=== PATIENT | female | born 1995 | race Caucasian/White ===

== ENCOUNTER 2017-07-25 15:16 | Inpatient (IN) | payer BC ==
[~2017-07-25] VITALS: Ht 160 cm; Wt 91.0 kg
--- NOTE | 2017-07-26 06:09 | PR ---
[facility] [address] [place], [place] [address] Signed PP Progress Notes Datetime Report Generated by CPN: 07/26/2017 06:09 SUBJECTIVE: [id number] Pain: Within normal limits Nausea/Vomiting: Denies Flatus: Yes Vital Signs: [id number] Vital Signs: Reviewed; Within Normal Limits EXAM: [id number] Cardiovascular: Normal Respiratory: Normal Abdomen/Uterus: Normal Lochia: Normal Vulva/Perineum: Normal Breasts: Normal CVA Tenderness: Normal Extremities: Normal Incision: Not Applicable Progress: Normal IMPRESSION/PLAN/PROCEDURES: [id number] Impression: Normal progression Plan: Continue present management Procedures: None Progress Notes: patient doing well. going well. RH and hgb pending Signing Physician: Ashlyn Hammonds MD CC: *Electronically Signed* 07/26/17 0609 ASHLYN HAMMONDS MD PATIENT NAME: YENY GUILLEN PROGRESS NOTE DATE OF : 89 PHYSICIAN: ASHLYN HAMMONDS MD RPT #: [id number] REPORT IS CONFIDENTIAL AND NOT TO BE RELEASED WITHOUT AUTHORIZATION
== END 2017-07-27 13:00 | disposition home or self-care (01) | DRG 775 ==
LOC: FBCO → FBC 15:44 → FBCO 08-01 13:03
PROVIDERS: ADMIT Obstetrics & Gynecology
PROC: 10907ZC Drainage of Amniotic Fluid, Therapeutic from Products of Conception, Via Natural or Artificial Opening (ICD-10-PCS; principal; 2017-07-25)
PROC: 10E0XZZ Delivery of Products of Conception, External Approach (ICD-10-PCS; 2017-07-25)
PROC: 0KQM0ZZ Repair Perineum Muscle, Open Approach (ICD-10-PCS; 2017-07-25)
DX: O99.824 Streptococcus B carrier state complicating childbirth (principal); Z3A.38 38 weeks gestation of pregnancy; Z37.0 Single live birth; O70.1 Second degree perineal laceration during delivery; O69.81X0 Labor and delivery complicated by cord around neck, without compression, not applicable or unspecified
CPT/HCPCS: 36415; 82565; 83030; 84450; 84520; 84550; 85025; 85027; 86850; 86870; 86900; 86901; J2540; J2590; J2790; J7120

== ENCOUNTER 2023-01-11 12:43 | Emergency (ER) | payer OTHER ==
[~2023-01-11] VITALS: Ht 160 cm; Wt 90.7 kg
== END 2023-01-11 15:05 | disposition home or self-care (01) ==
LOC: ED 12:43
DX: G44.209 Tension-type headache, unspecified, not intractable (principal); R00.0 Tachycardia, unspecified; F43.21 Adjustment disorder with depressed mood
CPT/HCPCS: 36415; 80053; 84443; 85025; 85060; 99284; J7030

== ENCOUNTER 2023-07-17 09:38 | Emergency (ER) | payer OTHER ==
[~2023-07-17] VITALS: Ht 160 cm; Wt 110.2 kg
--- OUTSIDE RECORDS SUMMARY | ~2023-07-17 | XMS | Continuity of Care Document ---
Demographics + + + | Address | [address] | | | [place] [address] | + + + | Preferred Language | Unknown | + + + | Marital Status | Never | + + + | Confucianism Affiliation | Unknown | + + + | Race | White | + + + | Ethnic Group | Not or | + + + Author + + + | Author | [facility] | + + + | Organization | [facility] | + + + | Address | [address] | | | [place] [address] | + + + | Phone | | + + + Care Team Providers + + + + | Care Precision Printing Worker Name | Role | Phone | + + + + Unavailable | Unavailable | + + + + Unavailable | Unavailable | + + + + Allergies No information. Encounters No information. Functional Status No information. Immunizations No information. Medications No information. Problems + + + + | date | description | facility | + + + + | 2023-01-11 00:00 | Grief | [facility] | + + + + | 2023-01-11 00:00 | Tension headache | [facility] | + + + + | 2023-01-11 00:00 | Tachycardia | [facility] | + + + + Procedures No information. Results/Labs +--------+--------+ +---------+--------+---------+ | test | date | facility | value | unit | notes | +--------+--------+ +---------+--------+---------+ + + | Result panel 1 | + + + + + +-------+ + + | | 2023-01-11 | [facility] | 6.4 | (missing) | (missing) | | (unavailable | [facility]50[facility]08 [facility] | | | + + + +-------+ + + + + | Result panel 2 | + + + + + +-------+ + + | | 2023-01-11 | [facility] | 183 | (missing) | (missing) | | (unavailable | [facility]50:08 [facility] | | | | + + + +-------+ + + + + | Result panel 3 | + + + + + +--------+ + + | | 2023-01-11 | [facility] | 42.1 | (missing) | (missing) | | (unavailable | [facility]08 [facility] | | | | + + + +--------+ + + + + | Result panel 4 | + + + + + +--------+ + + | | 2023-01-11 | [facility] | 50.2 | (missing) | (missing) | | (unavailable | [facility]:08 [facility] | | | | + + + +--------+ + + + + | Result panel 5 | + + + + + +-------+ + + | | 2023-01-11 | [facility] | 7.0 | (missing) | (missing) | | (unavailable | [facility]50:08 [facility] | | | | + + + +-------+ + + + + | Result panel 6 | + + + + + +-------+ + + | | 2023-01-11 | [facility] | 0.2 | (missing) | (missing) | | (unavailable | [facility]:08 [facility] | | | | + + + +-------+ + + + + | Result panel 7 | + + + + + +-------+ + + | | 2023-01-11 | [facility] | 0.5 | (missing) | (missing) | | (unavailable | [facility]08 [facility] | | | | + + + +-------+ + + + + | Result panel 8 | + + + + + +-------+---------+ + | | 2023-01-11 | [facility] | 105 | mg/dL | (missing) | | (unavailable | [facility]50:08 [facility] | | | | + + + +-------+---------+ + + + | Result panel 9 | + + + + + +------+---------+ + | | 2023-01-11 | [facility] | 14 | mg/dL | (missing) | | (unavailable | [facility]50:08 [facility] | | | | + + + +------+---------+ + + + | Result panel 10 | + + + + + +--------+---------+ + | | 2023-01-11 | [facility] | 0.82 | mg/dL | (missing) | | (unavailable | [facility]50:08 [facility] | | | + + + +--------+---------+ + + + | Result panel 11 | + + + + + +-------+ + + | | 2023-01-11 | [facility] | 101 | (missing) | (missing) | | (unavailable | [facility]50:08 [facility] | | | + + + +-------+ + + + + | Result panel 12 | + + + + + + + + + | | 2023-01-11 | [facility] | SEE COMMENT | (missing) | (missing) | | (unavailable | [facility]:50:08 [facility] | | | + + + + + + + + + | Result panel 13 | + + + + + +---------+ + + | | 2023-01-11 | [facility] | 17.07 | (missing) | (missing) | | (unavailable | [facility]50:08 [facility] | | | | + + + +---------+ + + + + | Result panel 14 | + + + + + +-------+ + + | | 2023-01-11 | [facility] | 137 | (missing) | (missing) | | (unavailable | [facility]50:08 [facility] | | | | + + + +-------+ + + + + | Result panel 15 | + + + + + +-------+ + + | | 2023-01-11 | [facility] | 3.0 | (missing) | (missing) | | (unavailable | [facility]50:08 [facility] | | | + + + +-------+ + + + + | Result panel 16 | + + + + + +-------+ + + | | 2023-01-11 | [facility] | 100 | (missing) | (missing) | | (unavailable | [facility]50:08 [facility] | | | + + + +-------+ + + + + | Result panel 17 | + + + + + +------+ + + | | 2023-01-11 | [facility] | 24 | (missing) | (missing) | | (unavailable | [facility]50:08 [facility] | | | + + + +------+ + + + + | Result panel 18 | + + + + + +--------+ + + | | 2023-01-11 | [facility] | 16.0 | (missing) | (missing) | | (unavailable | [facility]50:08 [facility] | | | + + + +--------+ + + + + | Result panel 19 | + + + + + +-------+---------+ + | | 2023-01-11 | [facility] | 9.1 | mg/dL | (missing) | | (unavailable | [facility]:50:08 [facility] | | | + + + +-------+---------+ + + + | Result panel 20 | + + + + + +-------+ + + | | 2023-01-11 | [facility] | 7.7 | (missing) | (missing) | | (unavailable | [facility]50:08 [facility] | | | + + + +-------+ + + + + | Result panel 21 | + + + + + +-------+ + + | | 2023-01-11 | [facility] | 3.7 | (missing) | (missing) | | (unavailable | [facility]50:08 [facility] | | | | + + + +-------+ + + + + | Result panel 22 | + + + + + +-------+ + + | | 2023-01-11 | [facility] | 4.0 | (missing) | (missing) | | (unavailable | [facility]50:08 [facility] | | | + + + +-------+ + + + + | Result panel 23 | + + + + + +--------+ + + | | 2023-01-11 | [facility] | 5.12 | (missing) | (missing) | | (unavailable | [facility]50:08 [facility] | | | | + + + +--------+ + + + + | Result panel 24 | + + + + + +--------+ + + | | 2023-01-11 | [facility] | 0.93 | (missing) | (missing) | | (unavailable | [facility]50:08 [facility] | | | + + + +--------+ + + + + | Result panel 25 | + + + + + +-------+ + + | | 2023-01-11 | [facility] | 0.7 | (missing) | (missing) | | (unavailable | [facility]50:08 [facility] | | | + + + +-------+ + + + + | Result panel 26 | + + + + + +------+ + + | | 2023-01-11 | [facility] | 39 | (missing) | (missing) | | (unavailable | [facility]:50:08 [facility] | | | + + + +------+ + + + + | Result panel 27 | + + + + + +------+ + + | | 2023-01-11 | [facility] | 51 | (missing) | (missing) | | (unavailable | 13:50:08 [facility] | | | | + + + +------+ + + + + | Result panel 28 | + + + + + +-------+ + + | | 2023-01-11 | [facility] | 106 | (missing) | (missing) | | (unavailable | [facility]:50:08 [facility] | | | | + + + +-------+ + + + + | Result panel 29 | + + + + + +---------+ + + | | 2023-01-11 | [facility] | 0.934 | (missing) | (missing) | | (unavailable | [facility]:50:08 [facility] | | | | + + + +---------+ + + + + | Result panel 30 | + + + + + +--------+ + + | | 2023-01-11 | [facility] | 13.1 | (missing) | (missing) | | (unavailable | [facility]:50:08 [facility] | | | | + + + +--------+ + + + + | Result panel 31 | + + + + + +--------+ + + | | 2023-01-11 | [facility] | 39.4 | (missing) | (missing) | | (unavailable | [facility]50:08 [facility] | | | + + + +--------+ + + + + | Result panel 32 | + + + + + +--------+ + + | | 2023-01-11 | [facility] | 76.9 | (missing) | (missing) | | (unavailable | [facility]50:08 [facility] | | | + + + +--------+ + + + + | Result panel 33 | + + + + + +--------+ + + | | 2023-01-11 | [facility] | 25.5 | (missing) | (missing) | | (unavailable | [facility]50:08 [facility] | | | + + + +--------+ + + + + | Result panel 34 | + + + + + +--------+ + + | | 2023-01-11 | [facility] | 33.2 | (missing) | (missing) | | (unavailable | [facility]50:08 [facility] | | | + + + +--------+ + + + + | Result panel 35 | + + + + + +--------+ + + | | 2023-01-11 | [facility] | 15.2 | (missing) | (missing) | | (unavailable | [facility]50:08 [facility] | | | | + + + +--------+ + + Social History No information. Vital Signs + + + +---------+ | date | measurement | value | units | + + + +---------+ | 2023-01-11 00:00 | BMI | 35.4 | kg/m2 | + + + +---------+ | 2023-01-11 00:00 | BP_diastolic | 106 | mmHg | + + + +---------+ | 2023-01-11 00:00 | BP_systolic | 154 | mmHg | + + + +---------+ | 2023-01-11 00:00 | heart_rate | 117 | /min | + + + +---------+ | 2023-01-11 00:00 | height_metric | 160.02 | cm | + + + +---------+ | 2023-01-11 00:00 | height_standard | 63 | in | + + + +---------+ | 2023-01-11 00:00 | o2_saturation | 97 | % | + + + +---------+ | 2023-01-11 00:00 | respiration_rate | 16 | /min | + + + +---------+ | 2023-01-11 00:00 | temperature_metric | 37.06 | C | | | | | | + + + +---------+ | 2023-01-11 00:00 | | 98.7 | F | | | temperature_standar | | | | | d | | | + + + +---------+ | 2023-01-11 00:00 | weight_metric | 90.72 | kg | + + + +---------+ | 2023-01-11 00:00 | weight_standard | 200 | lb | + + + +---------+"
--- OUTSIDE RECORDS SUMMARY | ~2023-07-17 | XMS | Continuity of Care Document ---
Demographics + + + | Address | [address] | | | [place] [address] | + + + | Preferred Language | Unknown | + + + | Marital Status | Never | + + + | Judaism Affiliation | Unknown | + + + | Race | White | + + + | Ethnic Group | Not or | + + + Author + + + | Author | [facility] | + + + | Organization | [facility] | + + + | Address | [address] | | | [place] [address] | + + + | Phone | | + + + Care Team Providers + + + + | Care Piercing Mill Operator Name | Role | Phone | + [...] + | 2023-01-11 00:00 | Grief | [facility] | + + + + | 2023-01-11 00:00 | Tension headache | [facility] | + + + + | 2023-01-11 00:00 | Tachycardia | [facility] | + + + + Procedures No [...]
[2023-07-17 10:16] LABS: BILIRUBIN, URINE POSITIVE (negative); BLOOD/HGB, URINE LARGE (Negative); KETONE, URINE >=80 (Negative); LEUK ESTERASE, URINE NEGATIVE (negative); NITRITE, URINE NEGATIVE (negative)
[2023-07-17 10:23] LABS: BACTERIA, URINE RARE /hpf (negative); CASTS, URINE NONE SEEN \\lpf; COLLECTION TYPE, URINE CLEAN CATCH; CRYSTALS, URINE NONE SEEN (0-1+); EPITHELIAL CELLS, URINE SQUAMOUS 2+ /lpf (0-1+); RED BLOOD CELLS, URINE 41-50 /hpf (0-5)
[2023-07-17 10:24] LABS: REFLEX CULTURE, URINE No (No)
[2023-07-17 10:35] LABS: BASOPHILS 0.1 % (0-2); EOSINOPHILS 0.3 % (0-6); HEMATOCRIT 38.7 % (35.0-50.0); HEMOGLOBIN 12.8 g/dL (12.0-18.0); LYMPHOCYTES 15.4 % (24-44); MCH 25.8 (27-36); MCHC 33.1 g/dl (30-36); MCV 77.8 fl (81-99); MONOCYTES 5.2 % (0-12); PLATELET COUNT 138 K/uL (140-440); RBC 4.98 M/ul (4.3-5.7); RDW 14.6 (10.5-15.0)
[2023-07-17 10:38] LABS: ANION GAP 15.8 (7-21); BUN/CREATININE RATIO 16.47 (6.0-28.6); CREATININE, SERUM 0.85 mg/dL (0.55-1.02); POTASSIUM 2.8 mmol/L (3.5-5.1)
[2023-07-17] MEDS ORDERED: HYDROCODON-ACE1 EA10 PO (12:24)
[2023-07-17] MEDS ORDERED: ONDANSETRON ODT4 MG PO (12:25)
[2023-07-17 12:31] VITALS: BP 113/72
== END 2023-07-17 12:30 | disposition home or self-care (01) ==
LOC: ED 09:38
PROVIDERS: Emergency Medicine
DX: N20.1 Calculus of ureter (principal)
CPT/HCPCS: 36415; 74176; 80048; 81001; 84703; 85025; 85060; 99284-25; J7030

== ENCOUNTER 2025-05-28 03:31 | Inpatient (IN) | payer OTHER ==
[~2025-05-28] VITALS: Ht 157.5 cm; Wt 78.9 kg
[~2025-05-28 03:31] MED LIST: HYDROCODON-ACE1 EA10 PO; ONDANSETRON ODT4 MG PO
[2025-05-28 04:28] LABS: MCH 27.0 PG (25.6-32.2); MCHC 34.3 g/dL (32.2-35.5); MCV 78.7 fL (79.4-94.8); RBC 4.37 M/uL (3.93-5.22)
[2025-05-28] MEDS ORDERED: CALCIUM CARBONATE 500 MG CHEW PO PRN ×2 (04:30→05:00)
[2025-05-28] MEDS ORDERED: LIDOCAINE HCL 1% 30 ML SDV INJ PRN (04:30)
[2025-05-28] MEDS ORDERED: TERBUTALINE SULFATE 1 MG/ML AMP SUB-Q PRN (04:30)
[2025-05-28] MEDS ORDERED: MAGNESIUM HYDROXIDE/AL HYDROX 30 ML CUP PO PRN ×2 (04:30→05:00)
[2025-05-28] MEDS ORDERED: OXYTOCIN/0.9 % SODIUM CHLORIDE 30 UNITS/500 ML BAG IV SCH (04:30)
[2025-05-28] MEDS ORDERED: WITCH HAZEL/GLYCERIN 1 EA PAD TOP PRN (05:00)
[2025-05-28] MEDS ORDERED: IBUPROFEN 600 MG TAB PO PRN (05:00)
[2025-05-28] MEDS ORDERED: ACETAMINOPHEN 325 MG TAB PO PRN (05:00)
[2025-05-28] MEDS ORDERED: LIDOCAINE 2% VISCOUS 6 ML SYR TOP ONE ×2 (05:00)
[2025-05-28] MEDS ORDERED: BENZOCAINE 60 ML AEROSOL TOP PRN (05:00)
[2025-05-28] MEDS ORDERED: OXYTOCIN/0.9 % SODIUM CHLORIDE 500 ML IV SCH (05:00)
[2025-05-28] MEDS ORDERED: MAGNESIUM HYDROXIDE 30 ML UDC PO PRN (05:00)
[2025-05-28] MEDS ORDERED: HYDROCORTISONE ACETATE 25 MG SUPP PR PRN (05:00)
[2025-05-28 05:39] LABS: ABO O; ANTIBODY SCREEN POSITIVE; RH NEGATIVE
[2025-05-28 06:07] LABS: ANTIBODY IDENTIFICATION ANTI-D
[2025-05-28 07:10] VITALS: BP 119/71
[2025-05-28 08:11] LABS: AMPHETAMINES, URINE NEGATIVE (NEGATIVE); BARBITURATES, URINE NEGATIVE (NEGATIVE); BENZODIAZEPINE, URINE NEGATIVE (NEGATIVE); CANNABINOID, URINE NEGATIVE (NEGATIVE); COCAINE, URINE NEGATIVE (NEGATIVE); ECSTASY, URINE NEGATIVE (NEGATIVE); FENTANYL, URINE NEGATIVE (NEGATIVE); METHADONE, URINE NEGATIVE (NEGATIVE); OPIATES, URINE NEGATIVE (NEGATIVE); OXYCODONE, URINE NEGATIVE (NEGATIVE); PHENCYCLIDINE, URINE NEGATIVE (NEGATIVE)
[2025-05-28] MEDS ORDERED: SENNOSIDES/DOCUSATE 1 EA TAB PO SCH (09:00)
[2025-05-29 11:23] LABS: ABO O; ANTIBODY SCREEN POSITIVE; FETAL HEMOGLOBIN SCREEN NEGATIVE; RH NEGATIVE; RHIG STATUS CANDIDATE
[2025-05-29 11:24] LABS: ANTIBODY IDENTIFICATION ANTI-D; RHIG DOSE 1
== END 2025-05-29 12:00 | disposition home or self-care (01) | DRG 807 ==
LOC: FBCO 03:31 → FBC 04:03
PROVIDERS: Advanced Practice Midwife; ADMIT Obstetrics & Gynecology; ATTEND Obstetrics & Gynecology
PROC: 10E0XZZ Delivery of Products of Conception, External Approach (ICD-10-PCS; principal; 2025-05-28)
PROC: 0KQM0ZZ Repair Perineum Muscle, Open Approach (ICD-10-PCS; principal; 2025-05-28)
DX: O70.1 Second degree perineal laceration during delivery (principal); Z37.0 Single live birth; O99.214 Obesity complicating childbirth; Z86.19 Personal history of other infectious and parasitic diseases; Z3A.38 38 weeks gestation of pregnancy
CPT/HCPCS: 36415; 80307; 83030; 85027; 86850; 86870; 86900; 86901; J2790

== ENCOUNTER 2025-06-01 12:45 | Emergency (ER) | payer OTHER ==
[~2025-06-01] VITALS: Ht 152.4 cm; Wt 73.0 kg
--- OUTSIDE RECORDS SUMMARY | ~2025-06-01 | XMS | Continuity of Care Document ---
Demographics + + + | Address | [address] | | | [place] [address] | + + + | Preferred Language | Unknown | + + + | Marital Status | Never | + + + | Scientologist Affiliation | Unknown | + + + | Race | White | + + + | Ethnic Group | Not or | + + + Author + + + | Author | [facility] | + + + | Organization | [facility] | + + + | Address | [address] | | | [place] [address] | + + + | Phone | | + + + Care Team Providers + + + + | Care Band Tumbler Name | Role | Phone | + + + + Unavailable | Unavailable | + + + + Allergies No information. Encounters No information. Functional Status No information. Immunizations No information. Medications No information. Problems No information. Procedures No information. Results/Labs +--------+--------+ +---------+--------+---------+ | test | date | facility | value | unit | notes | +--------+--------+ +---------+--------+---------+ + + | Result panel 1 | + + + + + + + + + | | 2025-05-28 | | NEGATIVE | (missing) | (missing) | | Amphetamines | 03:40:07 | [facility] | | | | | Ur Ql [facility] Scn[facility]500 [facility] | | | | + + + + + + + + + | Result panel 2 | + + + + + + + + + | | 2025-05-28 | | NEGATIVE | (missing) | (missing) | | Barbiturates | 03:40:07 | [facility] | | | | | Ur Ql | [facility] | Scn>300 | [facility] ng/mL [facility] | | | | + + + + + + + + + | Result panel 3 | + + + + + + + + + | Benzodiaz | 2025-05-28 | | NEGATIVE | (missing) | (missing) | | Ur Ql | 03:40:07 | [facility] | | | | | Scn>300 | [facility] ng/[facility] | | | | + + + + + + + + + | Result panel 4 | + + + + + + + + + | Cocaine Ur | 2025-05-28 | | NEGATIVE | (missing) | (missing) | | Ql Scn | 03:40:07 | [facility] | | | | + + + + + + + + + | Result panel 5 | + + + + + + + + + | | 2025-05-28 | | NEGATIVE | (missing) | (missing) | | Buprenorphin | 03:40:07 | [facility] | | | | | e Ur Ql Scn | [facility] | | | | + + + + + + + + + | Result panel 6 | + + + + + + + + + | oxyCODONE | 2025-05-28 | | NEGATIVE | (missing) | (missing) | | Ur Ql Scn | 03:40:07 | [facility] | | | | + + + + + + + + + | Result panel 7 | + + + + + + + + + | MDMA Ur Ql | 2025-05-28 | | NEGATIVE | (missing) | (missing) | | Scn | 03:40:07 | [facility] | | | | + + + + + + + + + | Result panel 8 | + + + + + + + + + | Methadone | 2025-05-28 | | NEGATIVE | (missing) | (missing) | | Ur Ql | 03:40:07 | [facility] | | | | | Scn>300 | [facility] ng/mL [facility] | | | | + + + + + + + + + | Result panel 9 | + + + + + + + + + | Opiates Ur | 2025-05-28 | | NEGATIVE | (missing) | (missing) | | Ql Scn | 03:40:07 | [facility] | | | | + + + + + + + + + | Result panel 10 | + + + + + + + + + | PCP Ur Ql | 2025-05-28 | | NEGATIVE | (missing) | (missing) | | Scn>25 ng/mL | 03:40:07 | [facility] | | | | + + + + + + + + + | Result panel 11 | + + + + + + + + + | THC Ur Ql | 2025-05-28 | | NEGATIVE | (missing) | (missing) | | Scn>50 ng/mL | 03:40:07 | [facility] | | | | + + + + + + + + + | Result panel 12 | + + + + + + + + + | fentaNYL Ur | 2025-05-28 | | NEGATIVE | (missing) | (missing) | | Ql Scn | 03:40:07 | [facility] | | | | + + + + + + + + + | Result panel 13 | + + + + + +--------+ + + | RBC # Bld | 2025-05-28 | | 4.37 | (missing) | (missing) | | Auto | 04:10:07 | [facility] | | | | + + + +--------+ + + + + | Result panel 14 | + + + + + +--------+ + + | Hgb | 2025-05-28 | | 11.8 | (missing) | (missing) | | Bld-mCnc | 04:10:07 | [facility] | | | | + + + +--------+ + + + + | Result panel 15 | + + + + + +--------+ + + | Hct VFr.DF | 2025-05-28 | | 34.4 | (missing) | (missing) | | Bld Auto | 04:10:07 | [facility] | | | | + + + +--------+ + + + + | Result panel 16 | + + + + + +--------+ + + | RBC Auto | 2025-05-28 | | 78.7 | (missing) | (missing) | | | 04:10:07 | [facility] | | | | + + + +--------+ + + + + | Result panel 17 | + + + + + +--------+ + + | MCH RBC Qn | 2025-05-28 | | 27.0 | (missing) | (missing) | | Auto | 04:10:07 | [facility] | | | | + + + +--------+ + + + + | Result panel 18 | + + + + + +--------+ + + | MCHC RBC | 2025-05-28 | | 34.3 | (missing) | (missing) | | Auto-EntMCnc | 04:10:07 | [facility] | | | | + + + +--------+ + + + + | Result panel 19 | + + + + + +-------+ + + | Platelet # | 2025-05-28 | | 168 | (missing) | (missing) | | Bld Auto | 04:10:07 | [facility] | | | | + + + +-------+ + + + + | Result panel 20 | + + + + + + + + + | Transf Band | 2025-05-28 | | BLOOD IN | (missing) | (missing) | | Num Patient | 04:10:07 | [facility] LAB [facility] | | | | + + + + + + + + + | Result panel 21 | + + + + + +--------+ + + | WBC # Bld | 2025-05-28 | | 7.47 | (missing) | (missing) | | Auto | 04:10:07 | [facility] | | | | + + + +--------+ + + + + | Result panel 22 | + + + + + +-----+ + + | ABO Group | 2025-05-29 | | O | (missing) | (missing) | | Bld | 10:30:07 | [facility] | | | | + + + +-----+ + + + + | Result panel 23 | + + + + + + + + + | Rh Bld | 2025-05-29 | | NEGATIVE | (missing) | (missing) | | | 10:30:07 | [facility] | | | | + + + + + + + + + | Result panel 24 | + + + + + + + + + | IAT Poly-Sp | 2025-05-29 | | POSITIVE | (missing) | (missing) | | Reag SerPl | 10:30:07 | [facility] | | | | | Ql [facility] | | | | + + + + + + + + + | Result panel 25 | + + + + + + + + + | Bld gp Ab | 2025-05-29 | | ANTI-D | (missing) | (missing) | | Autol Scn | 10:30: | [facility] | | | | | SerPl-Imp [facility] | | | | + + + + + + + + + | Result panel 26 | + + + + + + + + + | Rh Imm Gl | 2025-05-29 | | [id number] | (missing) | (missing) | | gvn by | 10:: | [facility] | | | | | Provider [facility] | | | | + + + + + + + + + | Result panel 27 | + + + + + + + + + | Rh Ig Scn | 2025-05-29 | | NEGATIVE | (missing) | (missing) | | Bld-Imp | 10:30:07 | [facility] | | | | + + + + + + + + + | Result panel 28 | + + + + + + + + + | RhoGam | 2025-05-29 | | CANDIDATE | (missing) | (missing) | | candidate | 10:30:07 | [facility] | | | | + + + + + + + + + | Result panel 29 | + + + + + +-----+ + + | Rh Ig Vials | 2025-05-29 | | 1 | (missing) | (missing) | | Recom | 10:30:07 | [facility] | | | | | Patient [facility] | | | | + + + +-----+ + + Social History +--------+ + + | date | description | facility | +--------+ + + Vital Signs + + + +---------+ | date | measurement | value | units | + + + +---------+ | 2025-05-28 00:00 | BMI | 31.8 | kg/m2 | + + + +---------+ | 2025-05-28 00:00 | BP_diastolic | 71 | mmHg | + + + +---------+ | 2025-05-28 00:00 | BP_systolic | 119 | mmHg | + + + +---------+ | 2025-05-28 00:00 | height_metric | 157.5 | cm | + + + +---------+ | 2025-05-28 00:00 | height_standard | 62.01 | in | + + + +---------+ | 2025-05-28 00:00 | weight_metric | 78.9 | kg | + + + +---------+ | 2025-05-28 00:00 | weight_standard | 173.94 | lb | + + + +---------+"
[2025-06-01] MEDS ORDERED: SODIUM CHLORIDE 0.9% 1,000 ML IV PRN (14:15)
[2025-06-01 14:32] LABS: BASOPHILS 0.3 % (0.1-1.2); EOSINOPHILS 0.4 % (0.7-5.8); LYMPHOCYTES 22.0 % (19.3-51.7); MCH 26.3 PG (25.6-32.2); MCHC 32.6 g/dL (32.2-35.5); MCV 80.7 fL (79.4-94.8); MONOCYTES 5.5 % (4.7-12.5); NEUTROPHILS 71.4 % (34.0-71.1); RBC 4.60 M/uL (3.93-5.22)
[2025-06-01 14:52] LABS: ALT (SGPT) 20.0 U/L (14-59); AST (SGOT) 14.0 U/L (15-37); GLOMERULAR FILTRATION RATE,EST 120.0 mL/min (>60); PROTEIN, TOTAL 7.5 g/dL (6.4-8.2); UREA NITROGEN 15.0 mg/dL (7-18)
[2025-06-01] MEDS ORDERED: KETOROLAC TROMETHAMINE 15 MG/ML VIAL IV ONE (15:00)
[2025-06-01 16:23] LABS: BLOOD/HGB, URINE LARGE (Negative); KETONE, URINE SMALL (Negative); LEUK ESTERASE, URINE TRACE (negative); NITRITE, URINE NEGATIVE (negative)
[2025-06-01 16:27] LABS: PROTEIN, RANDOM URINE 33.0 mg/dL (NOT ESTABLISHED)
[2025-06-01 16:29] LABS: BACTERIA, URINE NONE SEEN /hpf (negative); CASTS, URINE NONE SEEN \\lpf; CRYSTALS, URINE NONE SEEN (0-1+); EPITHELIAL CELLS, URINE SQUAMOUS 1+ /lpf (0-1+); REFLEX CULTURE, URINE No (No)
[2025-06-01] MEDS ORDERED: LABETALOL HCL100 MG PO (17:03)
[2025-06-01] MEDS ORDERED: LABETALOL HCL 100 MG TAB PO ONE (17:30)
[2025-06-01 17:36] VITALS: BP 120/77
== END 2025-06-01 17:38 | disposition home or self-care (01) ==
LOC: ED 12:45
PROVIDERS: Emergency Medicine
DX: O10.911 Unspecified pre-existing hypertension complicating pregnancy, first trimester (principal)
CPT/HCPCS: 36415; 80053; 81001; 82570; 84156; 85025; 96374; 99284-25; J1885; J7030

== ENCOUNTER 2025-06-03 01:20 | Emergency (ER) | payer OTHER ==
[~2025-06-03] VITALS: Ht 157.5 cm; Wt 74.6 kg
--- OUTSIDE RECORDS SUMMARY | ~2025-06-03 | XMS | Continuity of Care Document ---
Demographics + + + | Address | [facility] [address] | | | [place] [address] | + + + | Preferred Language | Unknown | + + + | Marital Status | Never | + + + | Restorationism Affiliation | Unknown | + + + | Race | White | + + + | Ethnic Group | Not or | + + + Author + + + | Author | [facility] | + + + | Organization | [facility] | + + + | Address | [address] | | | [place] [address] | + + + | Phone | | + + + Care Team Providers + + + + | Care Ham Curer Name | Role | Phone | + + + + Unavailable | Unavailable | + + + + Unavailable | Unavailable | + + + + Allergies No information. Encounters No information. Functional Status No information. Immunizations No information. Medications + + + + | date | description | facility | + + + + | 2025-06-01 00:00 | LABETALOL HCL | [facility] | | | | [facility] | + + + + Problems + + + + | date | description | facility | + + + + | 2025-06-01 00:00 | Pre-eclampsia | [facility] | | | | [facility] | + + + + | 2025-06-01 00:00 | Hypertension affecting | [facility] | | | , antepartum | [facility] | + + + + Procedures No [...] 13 | + + + + + + [...] 14 | + + + + + + [...] 15 | + + + + + + [...] 16 | + + + + + + [...] 17 | + + + + + + [...] 18 | + + + + + + [...] 19 | + + + + + + [...] 21 | + + + + + + [...] 22 | + + + + + + [...] 27 | + + + + + +--------+ [...] 28 | + + + + + +--------+ [...] 29 | + + + + + +--------+ [...] (missing) | | [facility] | 04:10:07 | [facility] | | | | + + + +--------+ + + + + | Result panel 34 | + + + + + +-------+ [...] 35 | + + + + + +-----+ [...] + + + + | Result panel 36 | + + + + + + [...] + + + + | Result panel 37 | + + + + + + [...] + + + + | Result panel 38 | + + + + + + + + + | Bld gp Ab | 2025-05-29 | | ANTI-D | (missing) | (missing) | | Autol Scn | 10:30:07 | [facility] | | | | | [facility]Imp [facility] | | | | + + + + + + + + + | Result panel 39 | + + + + + + + + + | Rh Imm Gl | 2025-05-29 | | [id number] | (missing) | (missing) | | gvn by | 10:30:07 | [facility] - [facility] | | | | + + + + + + + + + | Result panel 40 | + + + + + + [...] + + + + | Result panel 41 | + + + + + + [...] + + + + | Result panel 42 | + + + + + +-----+ [...] + + + + | Result panel 43 | + + + + + + [...] + + + + | Result panel 44 | + + + + + + [...] + + + + | Result panel 45 | + + + + + +-----+ [...] + + + + | Result panel 46 | + + + + + + + + + | Bld gp Ab | 2025-05-29 | | ANTI-D | (missing) | (missing) | | Autol Scn | 10:30:07 | [facility] | | | | | [facility]Imp [facility] | | | | + + + + + + + + + | Result panel 47 | + + + + + + + + + | Rh Imm Gl | 2025-05-29 | | [id number] | (missing) | (missing) | | gvn by | 10:30:07 | [facility] | | | | | Provider | [facility] - [facility] | | | | [facility] | | | | + + + + + + + + + | Result panel 48 | + + + + + + + + + | Rh Ig Scn | 2025-05-29 | | NEGATIVE | (missing) | (missing) | | Bld-Imp | 10:30:07 | [facility] | | | | | | | - [facility] | | | | [facility] | | | | + + + + + + + + + | Result panel 49 | + + + + + + [...] + + + + | Result panel 50 | + + + + + +-----+ [...] + + + + | Result panel 51 | + + + + + +--------+ + + | RBC # Bld | 2025-06-01 | | 4.60 | (missing) | (missing) | | Auto | 14:29:07 | [facility] | | | | + + + +--------+ + + + + | Result panel 52 | + + + + + +--------+ + + | Hgb | 2025-06-01 | | 12.1 | (missing) | (missing) | | Bld-mCnc | 14:29:07 | [facility] | | | | + + + +--------+ + + + + | Result panel 53 | + + + + + +--------+ + + | Hct VFr.DF | 2025-06-01 | | 37.1 | (missing) | (missing) | | Bld Auto | 14:29:07 | [facility] | | | | + + + +--------+ + + + + | Result panel 54 | + + + + + +--------+ + + | RBC Auto | 2025-06-01 | | 80.7 | (missing) | (missing) | | | 14:29:07 | [facility] | | | | + + + +--------+ + + + + | Result panel 55 | + + + + + +--------+ + + | MCH RBC Qn | 2025-06-01 | | 26.3 | (missing) | (missing) | | Auto | 14:29:07 | [facility] | | | | + + + +--------+ + + + + | Result panel 56 | + + + + + +--------+ + + | MCHC RBC | 2025-06-01 | | 32.6 | (missing) | (missing) | | [facility] | 14:29:07 | [facility] | | | | + + + +--------+ + + + + | Result panel 57 | + + + + + +-------+ + + | Platelet # | 2025-06-01 | | 196 | (missing) | (missing) | | Bld Auto | 14:29:07 | [facility] | | | | + + + +-------+ + + + + | Result panel 58 | + + + + + +--------+ + + | Neutrophils | 2025-06-01 | | 71.4 | (missing) | (missing) | | NFr Bld | 14:29:07 | [facility] | | | | | Auto | [facility] | | | | + + + +--------+ + + + + | Result panel 59 | + + + + + +--------+ + + | Lymphocytes | 2025-06-01 | | 22.0 | (missing) | (missing) | | NFr Bld | 14:29:07 | [facility] | | | | | Auto | [facility] | | | | + + + +--------+ + + + + | Result panel 60 | + + + + + +-------+ + + | Monocytes | 2025-06-01 | | 5.5 | (missing) | (missing) | | NFr Bld Auto | 14:29:07 | [facility] | | | | + + + +-------+ + + + + | Result panel 61 | + + + + + +-------+ + + | Eosinophil | 2025-06-01 | | 0.4 | (missing) | (missing) | | NFr Bld Auto | 14:29:07 | [facility] | | | | + + + +-------+ + + + + | Result panel 62 | + + + + + +-------+ + + | Basophils | 2025-06-01 | | 0.3 | (missing) | (missing) | | NFr Bld Auto | 14:29:07 | [facility] | | | | + + + +-------+ + + + + | Result panel 63 | + + + + + +------+---------+ + | Glucose | 2025-06-01 | | 93 | mg/dL | (missing) | | SerPl-mCnc | 14:29:07 | [facility] | | | | + + + +------+---------+ + + + | Result panel 64 | + + + + + +------+---------+ + | BUN | 2025-06-01 | | 15 | mg/dL | (missing) | | SerPl-mCnc | 14:29:07 | [facility] | | | | + + + +------+---------+ + + + | Result panel 65 | + + + + + +--------+---------+ + | Creat | 2025-06-01 | | 0.70 | mg/dL | (missing) | | SerPl-mCnc | 14:29:07 | [facility] | | | | + + + +--------+---------+ + + + | Result panel 66 | + + + + + +-------+ + + | eGFRcr | 2025-06-01 | | 120 | (missing) | (missing) | | SerPlBld | 14:29:07 | [facility] | | | | | CKD-EPI 2020 | [facility] | | | | + + + +-------+ + + + + | Result panel 67 | + + + + + +---------+ + + | BUN/Creat | 2025-06-01 | | 21.42 | (missing) | (missing) | | SerPl | 14:29:07 | [facility] | | | | + + + +---------+ + + + + | Result panel 68 | + + + + + +-------+ + + | Sodium | 2025-06-01 | | 140 | (missing) | (missing) | | SerPl-sCnc | 14:29:07 | [facility] | | | | + + + +-------+ + + + + | Result panel 69 | + + + + + +-------+ + + | Potassium | 2025-06-01 | | 3.2 | (missing) | (missing) | | SerPl-sCnc | 14:29:07 | [facility] | | | | + + + +-------+ + + + + | Result panel 70 | + + + + + +-------+ + + | Chloride | 2025-06-01 | | 105 | (missing) | (missing) | | SerPl-sCnc | 14:29:07 | [facility] | | | | + + + +-------+ + + + + | Result panel 71 | + + + + + +------+ + + | CO2 | 2025-06-01 | | 25 | (missing) | (missing) | | [facility] | 14:29:07 | [facility] | | | | | [facility] | | | | + + + +------+ + + + + | Result panel 72 | + + + + + +--------+ + + | Anion Gap | 2025-06-01 | | 13.2 | (missing) | (missing) | | SerPl | 14:29:07 | [facility] | | | | | Calculated.4 | [facility] | | | | + + + +--------+ + + + + | Result panel 73 | + + + + + +-------+---------+ + | Calcium | 2025-06-01 | | 9.1 | mg/dL | (missing) | | SerPl-mCnc | 14:29:07 | [facility] | | | [facility] | | | | + + + +-------+---------+ + + + | Result panel 74 | + + + + + +-------+ + + | Prot | 2025-06-01 | | 7.5 | (missing) | (missing) | | [facility] | 14:29:07 | [facility] | | | | + + + +-------+ + + + + | Result panel 75 | + + + + + +-------+ + + | Albumin | 2025-06-01 | | 3.5 | (missing) | (missing) | | [facility] | 14:29:07 | [facility] | | | | + + + +-------+ + + + + | Result panel 76 | + + + + + +-------+ + + | Globulin | 2025-06-01 | | 4.0 | (missing) | (missing) | | Ser-mCnc | 14:29:07 | [facility] | | | | + + + +-------+ + + + + | Result panel 77 | + + + + + +--------+ + + | | 2025-06-01 | | 0.88 | (missing) | (missing) | | Albumin/Glob | 14:29:07 | [facility] | | | | | SerPl | [facility] | | | | + + + +--------+ + + + + | Result panel 78 | + + + + + +-------+---------+ + | Bilirub | 2025-06-01 | | 0.5 | mg/dL | (missing) | | SerPl-mCnc | 14:29:07 | [facility] | | | | + + + +-------+---------+ + + + | Result panel 79 | + + + + + +------+ + + | AST | 2025-06-01 | | 14 | (missing) | (missing) | | SerPl-cCnc | 14:29:07 | [facility] | | | | + + + +------+ + + + + | Result panel 80 | + + + + + +------+ + + | ALT | 2025-06-01 | | 20 | (missing) | (missing) | | [facility] | 14:29:07 | [facility] | | | | + + + +------+ + + + + | Result panel 81 | + + + + + +------+ + + | ALP | 2025-06-01 | | 84 | (missing) | (missing) | | SerPl-cCnc | 14:29:07 | [facility] | | | | + + + +------+ + + + + | Result panel 82 | + + + + + +--------+ + + | WBC # Bld | 2025-06-01 | | 6.97 | (missing) | (missing) | | Auto | 14:29:07 | [facility] | | | | + + + +--------+ + + + + | Result panel 83 | + + + + + + + + + | Color Ur | 2025-06-01 | | YELLOW | (missing) | (missing) | | Auto | 16:18:07 | [facility] | | | | + + + + + + + + + | Result panel 84 | + + + + + +---------+ + + | Character | 2025-06-01 | | CLEAR | (missing) | (missing) | | Ur | 16:18:07 | [facility] | | | | + + + +---------+ + + + + | Result panel 85 | + + + + + + + + + | Glucose Ur | 2025-06-01 | | NEGATIVE | (missing) | (missing) | | Ql Strip | 16:18:07 | [facility] | | | | + + + + + + + + + | Result panel 86 | + + + + + + + + + | Bilirub Ur | 2025-06-01 | | NEGATIVE | (missing) | (missing) | | Ql Strip | 16:18:07 | [facility] | | | | + + + + + + + + + | Result panel 87 | + + + + + +---------+ + + | Ketones Ur | 2025-06-01 | | SMALL | (missing) | (missing) | | Ql Strip | 16:18:07 | [facility] | | | | + + + +---------+ + + + + | Result panel 88 | + + + + + +---------+ + + | Sp Gr Ur | 2025-06-01 | | 1.025 | (missing) | (missing) | | Strip | 16:18:07 | [facility] | | | | + + + +---------+ + + + + | Result panel 89 | + + + + + +---------+ + + | Hgb Ur Ql | 2025-06-01 | | LARGE | (missing) | (missing) | | Strip | 16:18:07 | [facility] | | | | + + + +---------+ + + + + | Result panel 90 | + + + + + +-------+ + + | pH Ur Strip | 2025-06-01 | | 5.5 | (missing) | (missing) | | | 16:18:07 | [facility] | | | | | | [facility] - [facility] | | | [facility] | | | | + + + +-------+ + + + + | Result panel 91 | + + + + + + + + + | Prot Ur | 2025-06-01 | | NEGATIVE | (missing) | (missing) | | Strip-mCnc | 16:18:07 | [facility] | | | | + + + + + + + + + | Result panel 92 | + + + + + + + + + | | 2025-06-01 | | NORMAL | (missing) | (missing) | | Urobilinogen | 16:18:07 | [facility] | | | | | Ur | [facility]nc [facility] | | | | + + + + + + + + + | Result panel 93 | + + + + + + + + + | Nitrite Ur | 2025-06-01 | | NEGATIVE | (missing) | (missing) | | Ql Strip | 16:18:07 | [facility] | | | | + + + + + + + + + | Result panel 94 | + + + + + +---------+ + + | Leukocyte | 2025-06-01 | | TRACE | (missing) | (missing) | | esterase Ur | 16:18:07 | [facility] | | | | | Ql Strip | [facility] | | | | + + + +---------+ + + + + | Result panel 95 | + + + + + +---------+ + + | RBC #/area | 2025-06-01 | | 41-50 | (missing) | (missing) | | UrnS HPF | 16:18:07 | [facility] | | | | + + + +---------+ + + + + | Result panel 96 | + + + + + +-------+ + + | WBC #/area | 2025-06-01 | | 2-3 | (missing) | (missing) | | [facility] | 16:18:07 | [facility] | | | | + + + +-------+ + + + + | Result panel 97 | + + + + + + + + + | Epi Cells | 2025-06-01 | | SQUAMOUS 1+ | (missing) | (missing) | | #/area UrnS | 16:18:07 | [facility] | | | | | HPF | | - | | | | | [facility] | | | | + + + + + + + + + | Result panel 98 | + + + + + + + + + | Crystals | 2025-06-01 | | NONE SEEN | (missing) | (missing) | | UrnS Micro | 16:18:07 | [facility] | | | | + + + + + + + + + | Result panel 99 | + + + + + + + + + | Bacteria | 2025-06-01 | | NONE SEEN | (missing) | (missing) | | #/area UrnS | 16:18:07 | [facility] | | | | | [facility] | | | | + + + + + + + + + | Result panel 100 | + + + + + + + + + | Casts | 2025-06-01 | | NONE SEEN | (missing) | (missing) | | #/area UrnS | 16:18:07 | [facility] | | | | | LPF [facility] | | | | + + + + + + + + + | Result panel 101 | + + + + + +------+ + + | Bacteria Ur | 2025-06-01 | | No | (missing) | (missing) | | Cult | 16:18: | [facility] | | | | + + + +------+ + + + + | Result panel 102 | + + + + + + + + + | Urn Spec | 2025-06-01 | | CLEAN CATCH | (missing) | (missing) | | Collect Meth | 16:18:07 | [facility] | | | | | Ur | [facility] | | | | + + + + + + + + + | Result panel 103 | + + + + + +---------+---------+ + | Creat | 2025-06-01 | | 93.70 | mg/dL | (missing) | | Ur-nc | 16:18:07 | [facility] | | | | + + + +---------+---------+ + + + | Result panel 104 | + + + + + + + + + | Prot/Creat | 2025-06-01 | | 0.3500 | (missing) | (missing) | | Ur-Rto | 16:18:07 | [facility] | | | | + + + + + + + + + | Result panel 105 | + + + + + +------+---------+ + | Prot | 2025-06-01 | | 33 | mg/dL | (missing) | | Ur-mCnc | 16:18:07 | [facility] | | | | + + + +------+---------+ + Social History +--------+ + + | [...] 173.94 | lb | + + + +---------+ | 2025-06-01 00:00 | BMI | 31.4 | kg/m2 | + + + +---------+ | 2025-06-01 00:00 | BP_diastolic | 77 | mmHg | + + + +---------+ | 2025-06-01 00:00 | BP_systolic | 120 | mmHg | + + + +---------+ | 2025-06-01 00:00 | heart_rate | 79 | /min | + + + +---------+ | 2025-06-01 00:00 | height_metric | 152.4 | cm | + + + +---------+ | 2025-06-01 00:00 | height_standard | 60 | in | + + + +---------+ | 2025-06-01 00:00 | o2_saturation | 99 | % | + + + +---------+ | 2025-06-01 00:00 | respiration_rate | 14 | /min | + + + +---------+ | 2025-06-01 00:00 | temperature_metric | 37 | C | | | | | | + + + +---------+ | 2025-06-01 00:00 | | 98.6 | F | | | temperature_standar | | | | | d | | | + + + +---------+ | 2025-06-01 00:00 | weight_metric | 73 | kg | + + + +---------+ | 2025-06-01 00:00 | weight_standard | 160.94 | lb | + + + +---------+"
[~2025-06-03 01:20] MED LIST changes: +LABETALOL HCL100 MG PO
--- OUTSIDE RECORDS SUMMARY | 2025-06-03 01:24 | XMS ---
PreManage Notification: YENY GUILLEN Security Biomass Technician Events No recent Security Events currently on file CRITERIA MET - [facility] - 2 Visits in 30 Days CARE PROVIDERS -[facility]+ Dentist: Template Cutter [facility] PHONE: [phone] -[facility]- Dentist: Template Cutter Current [facility] PHONE: [phone] HAI HERNANDEZ [facility] Current PHONE: Unknown [facility] has no Care Guidelines for this patient. [facility] VISIT COUNT (12 MO.) 2 [facility] TOTAL 2 NOTE: Visits indicate total known visits. ED/UCC VISIT TRACKING (12 MO.) 06/03/2025 01:21 [facility] [place] TYPE: Emergency COMPLAINT: - BLOOD PRESSURE ISSUES 06/01/2025 12:45 [facility] [place] TYPE: Emergency COMPLAINT: - HEADACHE INPATIENT VISIT TRACKING (12 MO.) 05/28/2025 04:[address] [facility] [place] TYPE[facility] COMPLAINT: - DIAGNOSES: - 38 weeks gestation of - 38 weeks gestation of - Encounter for full-term uncomplicated delivery - Obesity complicating childbirth - Obesity complicating childbirth - Obesity complicating childbirth - Other infection carrier state complicating childbirth - Personal history of other infectious and parasitic diseases - Personal history of other infectious and parasitic diseases - Second degree perineal laceration during delivery - Second degree perineal laceration during delivery - Single live - Single live [email or web address]
[2025-06-03 02:02] LABS: BASOPHILS 0.3 % (0.1-1.2); EOSINOPHILS 1.6 % (0.7-5.8); LYMPHOCYTES 40.5 % (19.3-51.7); MCH 26.4 PG (25.6-32.2); MCHC 32.4 g/dL (32.2-35.5); MCV 81.5 fL (79.4-94.8); MONOCYTES 7.0 % (4.7-12.5); NEUTROPHILS 50.3 % (34.0-71.1); RBC 4.17 M/uL (3.93-5.22)
[2025-06-03 02:06] LABS: BLOOD/HGB, URINE SMALL (Negative); KETONE, URINE NEGATIVE (Negative); LEUK ESTERASE, URINE NEGATIVE (negative); NITRITE, URINE NEGATIVE (negative)
[2025-06-03 02:13] LABS: EPITHELIAL CELLS, URINE SQUAMOUS 1+ /lpf (0-1+); INR 0.96 (0.80-1.30); PROTIME 12.4 Sec (11.2-14.2)
[2025-06-03 02:14] LABS: BACTERIA, URINE RARE /hpf (negative); CASTS, URINE NONE SEEN \\lpf; CRYSTALS, URINE NONE SEEN (0-1+); REFLEX CULTURE, URINE No (No)
[2025-06-03 02:20] LABS: PROTEIN, RANDOM URINE <6 mg/dL (NOT ESTABLISHED)
[2025-06-03 02:21] LABS: ALT (SGPT) 16.0 U/L (14-59); AST (SGOT) 9.0 U/L (15-37); GLOMERULAR FILTRATION RATE,EST 120.0 mL/min (>60); LACTATE DEHYDROGENASE 141.0 U/L (81-234); PROTEIN, TOTAL 7.1 g/dL (6.4-8.2); UREA NITROGEN 16.0 mg/dL (7-18)
[2025-06-03] MEDS ORDERED: ACETAMINOPHEN 500 MG TAB PO ONE (02:45)
[2025-06-03] MEDS ORDERED: PROCARDIA XL30 MG PO (02:50)
[2025-06-03] MEDS ORDERED: NIFEdipine XL 30 MG HOME.PACK PO ONE (03:00)
[2025-06-03 03:35] VITALS: BP 113/76
== END 2025-06-03 03:36 | disposition home or self-care (01) ==
LOC: ED 01:20
PROVIDERS: Family Medicine
DX: O16.5 Unspecified maternal hypertension, complicating the puerperium (principal); R51.9 Headache, unspecified; Z79.2 Long term (current) use of antibiotics
CPT/HCPCS: 36415; 80053; 81001; 82570; 83615; 83735; 84156; 84550; 85025; 85384; 85610; 85730; 96374; 99283-25; A9270; J0360